=== PATIENT | female | born 1965 | race Caucasian/White ===

== ENCOUNTER 2016-08-06 08:59 | Emergency (ER) | payer BC ==
[~2016-08-06] VITALS: Ht 165.1 cm; Wt 91.9 kg
[2016-08-06 10:06] LABS: HEMATOCRIT 36.1 % (36.0-46.0); MCH 25.7 PG (29.0-34.0); MCHC 31.3 G/DL (30.0-36.0); RBC DIS.WIDTH-CV 17.3 % (11.8-14.6); RBC DIS.WIDTH-SD 51.4 % (39-53)
[2016-08-06 10:15] LABS: CHLORIDE 107 mEq/L (99-109); POTASSIUM 4.1 mEq/L (3.7-5.4); SODIUM 138 mEq/L (136-147)
[2016-08-06 10:17] LABS: GLUCOSE 91 mg/dL (70-99)
[2016-08-06 10:18] LABS: ANION GAP 9 MEQ/L (2-14)
[2016-08-06 10:20] LABS: GFR ESTIMATE (CALCULATED) > 59 mL/min/
[2016-08-06 10:21] LABS: UREA NITROGEN (BUN) 10 mg/dL (9-23)
[2016-08-06 10:30] LABS: TROP-I INTERPRETATION NEGATIVE; TROPONIN-I < 0.01 ng/mL (0.0-0.30)
[2016-08-06 10:49] LABS: QUANTITATIVE HCG < 4.0 MIU/ML
[2016-08-06 11:16] LABS: MEAN PLAT.VOLUME 12.7 uM^3 (9.5-12.4); PLATELET COUNT 171 K/uL (156-360)
[2016-08-06 13:20] LABS: TROP-I INTERPRETATION NEGATIVE; TROPONIN-I < 0.01 ng/mL (0.0-0.30)
[2016-08-06] MEDS ORDERED: ATARAX,VISTARIL50 MG PO (14:13)
[2016-08-06 15:01] VITALS: BP 122/77
== END 2016-08-06 14:55 | disposition home or self-care (01) ==
LOC: EME 08:59
PROVIDERS: Emergency Medicine; Physician Assistant Medical
DX: R07.9 Chest pain, unspecified (principal); I10 Essential (primary) hypertension; E03.9 Hypothyroidism, unspecified
CPT/HCPCS: 71020; 80048; 81003; 83880; 84439; 84443; 84484; 84702; 85027; 93005; 99281; 99285; J2060